=== PATIENT | female | born 1960 | race Caucasian/White ===

== ENCOUNTER 2017-11-25 10:21 | Emergency (ER) | payer BC ==
[~2017-11-25] VITALS: Ht 160 cm; Wt 66.6 kg
[~2017-11-25 10:21] MED LIST: Levothroid,Synthroid PO; PREMARIN1.25 MG PO
[2017-11-25] MEDS ORDERED: VALACYCLOVIR1000 MG PO (10:58)
[2017-11-25] MEDS ORDERED: PREDNISONE20 MG PO (10:58)
[2017-11-25 11:14] VITALS: BP 140/97
== END 2017-11-25 11:15 | disposition home or self-care (01) ==
LOC: EME 10:21
DX: G51.0 Bell's palsy (principal)
CPT/HCPCS: 99281; 99283